=== PATIENT | female | born 2005 | race Caucasian/White ===

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

== ENCOUNTER 2023-02-27 12:51 | Outpatient (CLI) | payer OTHER, SELFPAY ==
--- NOTE | 2023-02-27 13:00 | CRLHL7_ITS ---
For Patients: As a result of the Century Cures Act, medical imaging exams and procedure reports are released immediately into your electronic medical record. You may view this report before your referring provider. If you have questions, please contact your health care provider. Indication: chronic sinusitis Technique: Performed without IV contrast Comparison: None available Findings: Frontal sinuses: Clear. Ethmoid sinuses: Mild mucosal thickening within 1 of the right anterior ethmoid air cells. Left ethmoid air cells are clear. Maxillary sinuses: Mild mucosal thickening within the inferior maxillary sinuses. The maxillary sinus drainage pathways are patent on both sides. Sphenoid sinuses: Clear, including both sphenoethmoidal recesses. Nasal Cavity: Nasal septum is primarily midline. No pari bullosa. No polyps. No TMJ abnormalities identified. The visualized portions of the orbits, intracranial contents and upper soft tissue neck are grossly negative. Impression: 1. Minimal bilateral maxillary sinus disease and right anterior ethmoid sinus disease. 2. Patent sinus drainage pathways. Please note that all CT scans at this facility use dose modulation, iterative reconstruction, and/or weight-based dosing when appropriate to reduce radiation dose to as low as reasonably achievable. Dictated by Martell Stephens MD @ 02/27/2023 2:58:52 PM (Electronically Signed)
== END 2023-02-27 12:52 | disposition home or self-care (01) ==
LOC: CT 12:52
PROVIDERS: PCP Pediatrics; Visit Provider Otolaryngology
DX: J32.9 Chronic sinusitis, unspecified (principal); J32.0 Chronic maxillary sinusitis
CPT/HCPCS: 70486